=== PATIENT | female | born 1960 | race Caucasian/White ===

== ENCOUNTER 2022-01-05 10:34 | Emergency (ER) | payer BC ==
[~2022-01-05] VITALS: Ht 167.6 cm; Wt 86.4 kg
[2022-01-05] MEDS ORDERED: amLODIPine 5mg tablet PO ONE (12:55)
[2022-01-05] MEDS ORDERED: AMLO2.5T2 PO (12:56)
[2022-01-05] MEDS ORDERED: amLODIPine 2.5mg tablet PO ONE (13:00)
[2022-01-05 13:08] VITALS: BP 182/97
== END 2022-01-05 13:28 | disposition home or self-care (01) ==
LOC: ER 10:34
DX: I12.9 Hypertensive chronic kidney disease with stage 1 through stage 4 chronic kidney disease, or unspecified chronic kidney disease (principal); E11.22 Type 2 diabetes mellitus with diabetic chronic kidney disease; N18.9 Chronic kidney disease, unspecified; R51.9 Headache, unspecified; E78.00 Pure hypercholesterolemia, unspecified; Z85.3 Personal history of malignant neoplasm of breast; Z98.890 Other specified postprocedural states; Z72.89 Other problems related to lifestyle; Z88.0 Allergy status to penicillin; Z79.899 Other long term (current) drug therapy
CPT/HCPCS: 99283